=== PATIENT | female | born 1935 | race Two or more races ===

== ENCOUNTER 2017-02-18 07:30 | Outpatient (CLI) | payer OTHER ==
[~2017-02-18 07:30] MED LIST: ANTIVERT25 M1 PO; ATENOLOL25 MG; LISINOPRIL-HCTZ1 T13; ORPH100T PO; SYNTHROID137 MCG; TRAMADOL HCL-AP1 TAB PO; ULTRACET PO; VASOTEC5 MG; ZETIA10 MG
== END 2017-02-18 08:30 | disposition home or self-care (01) ==
LOC: NUCLEAR 07:30
DX: C84.40 Peripheral T-cell lymphoma, not elsewhere classified, unspecified site (principal); C91.12 Chronic lymphocytic leukemia of B-cell type in relapse; D63.0 Anemia in neoplastic disease; D69.49 Other primary thrombocytopenia; D63.8 Anemia in other chronic diseases classified elsewhere; D51.3 Other dietary vitamin B12 deficiency anemia; E03.8 Other specified hypothyroidism; E03.9 Hypothyroidism, unspecified; E78.5 Hyperlipidemia, unspecified; I10 Essential (primary) hypertension; M81.0 Age-related osteoporosis without current pathological fracture; Z86.2 Personal history of diseases of the blood and blood-forming organs and certain disorders involving the immune mechanism; Z85.79 Personal history of other malignant neoplasms of lymphoid, hematopoietic and related tissues
CPT/HCPCS: 78816; A9552

== ENCOUNTER 2017-02-20 08:38 | Outpatient (CLI) | payer OTHER | END 2017-02-20 08:44 | disposition home or self-care (01) | LOC: LAB 08:38 | DX: C84.40 Peripheral T-cell lymphoma, not elsewhere classified, unspecified site (principal); C91.12 Chronic lymphocytic leukemia of B-cell type in relapse; D63.0 Anemia in neoplastic disease; D69.49 Other primary thrombocytopenia; D72.818 Other decreased white blood cell count; D63.8 Anemia in other chronic diseases classified elsewhere; D51.3 Other dietary vitamin B12 deficiency anemia; E03.8 Other specified hypothyroidism; E78.4 Other hyperlipidemia; I10 Essential (primary) hypertension; M81.0 Age-related osteoporosis without current pathological fracture; Z86.2 Personal history of diseases of the blood and blood-forming organs and certain disorders involving the immune mechanism; Z85.79 Personal history of other malignant neoplasms of lymphoid, hematopoietic and related tissues ==

== ENCOUNTER 2017-03-31 08:14 | Outpatient (CLI) | payer OTHER ==
[~2017-03-31] VITALS: Ht 152.4 cm; Wt 81.2 kg
== END 2017-03-31 08:35 | disposition home or self-care (01) ==
LOC: OFIC 805 08:14
DX: J39.2 Other diseases of pharynx (principal); C85.81 Other specified types of non-Hodgkin lymphoma, lymph nodes of head, face, and neck

== ENCOUNTER 2017-04-04 08:26 | Outpatient (CLI) | payer OTHER | END 2017-04-04 10:02 | disposition home or self-care (01) | LOC: SONOGRAMA 08:26 → MAMO-SONO 09:45 → SONOGRAMA 10:02 | DX: R22.1 Localized swelling, mass and lump, neck (principal) ==

== ENCOUNTER 2017-04-18 09:38 | Outpatient (CLI) | payer OTHER | END 2017-04-18 09:44 | disposition home or self-care (01) | LOC: RAD 09:38 | DX: Z01.818 Encounter for other preprocedural examination (principal) ==

== ENCOUNTER 2017-07-22 08:09 | Outpatient (CLI) | payer OTHER | END 2017-07-22 08:13 | disposition home or self-care (01) | LOC: MAMO-SONO 08:09 | DX: Z12.31 Encounter for screening mammogram for malignant neoplasm of breast (principal); Z87.898 Personal history of other specified conditions; N63.10 Unspecified lump in the right breast, unspecified quadrant; N63.11 Unspecified lump in the right breast, upper outer quadrant ==

== ENCOUNTER → 2017-08-08 | Outpatient (CLI) | payer OTHER | END | disposition home or self-care (01) | LOC: MAMO-SONO 08-07 08:45 → SONOGRAMA 08:02 → MAMO-SONO 08:45 | DX: C91.Z0 Other lymphoid leukemia not having achieved remission (principal); C91.50 Adult T-cell lymphoma/leukemia (HTLV-1-associated) not having achieved remission; C84.40 Peripheral T-cell lymphoma, not elsewhere classified, unspecified site; C91.12 Chronic lymphocytic leukemia of B-cell type in relapse; D63.0 Anemia in neoplastic disease; D69.49 Other primary thrombocytopenia; D72.818 Other decreased white blood cell count; D63.8 Anemia in other chronic diseases classified elsewhere; D51.3 Other dietary vitamin B12 deficiency anemia; E03.8 Other specified hypothyroidism; E78.4 Other hyperlipidemia; I10 Essential (primary) hypertension; M81.0 Age-related osteoporosis without current pathological fracture; Z86.2 Personal history of diseases of the blood and blood-forming organs and certain disorders involving the immune mechanism; Z85.79 Personal history of other malignant neoplasms of lymphoid, hematopoietic and related tissues ==

== ENCOUNTER 2017-08-22 07:56 | Outpatient (CLI) | payer OTHER | END 2017-08-22 08:00 | disposition home or self-care (01) | LOC: LAB 07:56 | DX: C91.Z0 Other lymphoid leukemia not having achieved remission (principal); C91.50 Adult T-cell lymphoma/leukemia (HTLV-1-associated) not having achieved remission; C91.12 Chronic lymphocytic leukemia of B-cell type in relapse; D63.0 Anemia in neoplastic disease; D69.49 Other primary thrombocytopenia; D63.8 Anemia in other chronic diseases classified elsewhere; D51.3 Other dietary vitamin B12 deficiency anemia; E03.8 Other specified hypothyroidism; E78.4 Other hyperlipidemia; I10 Essential (primary) hypertension; M81.0 Age-related osteoporosis without current pathological fracture; Z86.2 Personal history of diseases of the blood and blood-forming organs and certain disorders involving the immune mechanism; Z85.79 Personal history of other malignant neoplasms of lymphoid, hematopoietic and related tissues; D51.1 Vitamin B12 deficiency anemia due to selective vitamin B12 malabsorption with proteinuria; D51.0 Vitamin B12 deficiency anemia due to intrinsic factor deficiency; E06.3 Autoimmune thyroiditis; D68.8 Other specified coagulation defects ==

== ENCOUNTER 2017-10-26 16:11 | Inpatient (IN) | payer OTHER ==
[~2017-10-26] VITALS: Ht 160 cm; Wt 63.5 kg
[2017-10-28] MEDS ORDERED: PANTOPRAZOLE SO40 MG PO (16:07)
[2017-10-28] MEDS ORDERED: SYNTHROID125 MCG PO (16:07)
[2017-10-28] MEDS ORDERED: ZETIA10 MG PO (16:07)
[2017-10-28] MEDS ORDERED: PYRIDOXINE HCL100 M1 PO (16:07)
[2017-10-28] MEDS ORDERED: Neurin-Sl Tablet Sl SL (16:07)
[2017-10-28] MEDS ORDERED: LISINOPRIL20 MG PO (16:07)
== END 2017-10-28 17:20 | disposition home or self-care (01) | DRG 842 ==
LOC: ER 16:11 → SURH 17:17
PROC: 30233N1 Transfusion of Nonautologous Red Blood Cells into Peripheral Vein, Percutaneous Approach (ICD-10-PCS; principal; 2017-10-26)
PROC: 8E0ZXY6 Isolation (ICD-10-PCS; 2017-10-26)
DX: C91.50 Adult T-cell lymphoma/leukemia (HTLV-1-associated) not having achieved remission (principal); D63.8 Anemia in other chronic diseases classified elsewhere

== ENCOUNTER 2017-11-07 07:39 | Outpatient (CLI) | payer OTHER ==
[~2017-11-07 07:39] MED LIST changes: +LISINOPRIL20 MG PO; +Neurin-Sl Tablet Sl SL; +PANTOPRAZOLE SO40 MG PO; +PYRIDOXINE HCL100 M1 PO; +SYNTHROID125 MCG PO; +ZETIA10 MG PO
== END 2017-11-07 08:08 | disposition home or self-care (01) ==
LOC: LAB 07:39
DX: C91.Z0 Other lymphoid leukemia not having achieved remission (principal); C84.40 Peripheral T-cell lymphoma, not elsewhere classified, unspecified site; C91.12 Chronic lymphocytic leukemia of B-cell type in relapse; D63.0 Anemia in neoplastic disease; D69.49 Other primary thrombocytopenia; D72.818 Other decreased white blood cell count; D63.8 Anemia in other chronic diseases classified elsewhere; D51.3 Other dietary vitamin B12 deficiency anemia; E03.9 Hypothyroidism, unspecified; E78.4 Other hyperlipidemia; I10 Essential (primary) hypertension; M81.0 Age-related osteoporosis without current pathological fracture; Z86.2 Personal history of diseases of the blood and blood-forming organs and certain disorders involving the immune mechanism; Z85.79 Personal history of other malignant neoplasms of lymphoid, hematopoietic and related tissues; D50.8 Other iron deficiency anemias; D51.8 Other vitamin B12 deficiency anemias

== ENCOUNTER 2017-12-17 08:00 | Outpatient (CLI) | payer OTHER | END 2017-12-17 08:47 | disposition home or self-care (01) | LOC: LAB 08:00 | DX: D50.8 Other iron deficiency anemias (principal); I10 Essential (primary) hypertension ==

== ENCOUNTER 2017-12-17 13:50 | Inpatient (IN) | payer OTHER ==
[~2017-12-17] VITALS: Ht 157.5 cm; Wt 77.6 kg
== END 2017-12-20 16:24 | disposition home or self-care (01) | DRG 840 ==
LOC: ER 13:50 → MEDI 18:39 → MEDJ 18:39 → MEDI 21:15 → MEDJ 12-18 12:02
PROC: 30233N1 Transfusion of Nonautologous Red Blood Cells into Peripheral Vein, Percutaneous Approach (ICD-10-PCS; principal; 2017-12-17)
PROC: 8E0ZXY6 Isolation (ICD-10-PCS; 2017-12-18)
DX: C91.Z0 Other lymphoid leukemia not having achieved remission (principal); D61.1 Drug-induced aplastic anemia; E03.8 Other specified hypothyroidism; E78.49 Other hyperlipidemia; I10 Essential (primary) hypertension; D63.8 Anemia in other chronic diseases classified elsewhere

== ENCOUNTER 2018-02-02 08:06 | Outpatient (CLI) | payer OTHER | END 2018-02-02 08:18 | disposition home or self-care (01) | LOC: LAB 08:06 | DX: C91.Z0 Other lymphoid leukemia not having achieved remission (principal); C84.40 Peripheral T-cell lymphoma, not elsewhere classified, unspecified site; C91.12 Chronic lymphocytic leukemia of B-cell type in relapse; D69.49 Other primary thrombocytopenia; D72.818 Other decreased white blood cell count; D63.8 Anemia in other chronic diseases classified elsewhere; D51.3 Other dietary vitamin B12 deficiency anemia; E03.8 Other specified hypothyroidism; I10 Essential (primary) hypertension; M81.0 Age-related osteoporosis without current pathological fracture; Z86.2 Personal history of diseases of the blood and blood-forming organs and certain disorders involving the immune mechanism; Z85.79 Personal history of other malignant neoplasms of lymphoid, hematopoietic and related tissues; E78.49 Other hyperlipidemia ==

== ENCOUNTER 2018-02-04 17:11 | Outpatient (CLI) | payer OTHER | END 2018-02-04 17:28 | disposition home or self-care (01) | LOC: LAB 17:11 | DX: D50.0 Iron deficiency anemia secondary to blood loss (chronic) (principal); D50.8 Other iron deficiency anemias ==

== ENCOUNTER 2018-02-14 11:08 | Emergency (ER) | payer OTHER ==
[~2018-02-14] VITALS: Ht 157.5 cm; Wt 77.6 kg
[2018-02-14] MEDS ORDERED: [UNRECOGNIZED DRUG - OTHER] (11:46)
== END 2018-02-14 14:26 | disposition home or self-care (01) ==
LOC: ER 11:08
DX: L03.114 Cellulitis of left upper limb (principal)

== ENCOUNTER 2018-03-03 06:51 | Inpatient (IN) | payer OTHER ==
[~2018-03-03] VITALS: Ht 157.5 cm; Wt 171.0 kg
[~2018-03-03 06:51] MED LIST changes: +[UNRECOGNIZED DRUG - OTHER]
[2018-03-05] MEDS ORDERED: SYNTHROID125 MCG PO (14:43)
[2018-03-05] MEDS ORDERED: ZETIA10 MG PO (14:43)
[2018-03-05] MEDS ORDERED: PANTOPRAZOLE SO40 MG PO (14:43)
[2018-03-05] MEDS ORDERED: ATENOLOL25 MG PO (14:43)
[2018-03-05] MEDS ORDERED: PYRIDOXINE HCL100 M1 PO (14:43)
[2018-03-05] MEDS ORDERED: Neurin-Sl Tablet Sl SL (14:43)
[2018-03-05] MEDS ORDERED: LISINOPRIL20 MG PO (14:43)
== END 2018-03-05 17:10 | disposition home or self-care (01) | DRG 842 ==
LOC: ER 06:51 → SEC-K 11:05 → MEDJ 14:43 → SEC-K 16:57 → MEDI 18:49
PROVIDERS: ADMIT Internal Medicine Geriatric Medicine
PROC: 30233N1 Transfusion of Nonautologous Red Blood Cells into Peripheral Vein, Percutaneous Approach (ICD-10-PCS; principal; 2018-03-03)
PROC: 8E0ZXY6 Isolation (ICD-10-PCS; 2018-03-03)
DX: C91.50 Adult T-cell lymphoma/leukemia (HTLV-1-associated) not having achieved remission (principal); D63.0 Anemia in neoplastic disease; D64.81 Anemia due to antineoplastic chemotherapy; T45.1X5A Adverse effect of antineoplastic and immunosuppressive drugs, initial encounter; D69.49 Other primary thrombocytopenia; I10 Essential (primary) hypertension; F41.8 Other specified anxiety disorders; E11.9 Type 2 diabetes mellitus without complications; Z79.4 Long term (current) use of insulin; E78.2 Mixed hyperlipidemia

== ENCOUNTER 2018-03-10 10:45 | Outpatient (CLI) | payer OTHER ==
[~2018-03-10 10:45] MED LIST changes: +ATENOLOL25 MG PO
== END 2018-03-10 11:18 | disposition home or self-care (01) ==
LOC: LAB 10:45
DX: D50.8 Other iron deficiency anemias (principal)

== ENCOUNTER 2018-03-29 06:27 | Outpatient (CLI) | payer OTHER | END 2018-03-29 08:10 | disposition home or self-care (01) | LOC: LAB 06:27 | DX: C91.Z0 Other lymphoid leukemia not having achieved remission (principal); C84.40 Peripheral T-cell lymphoma, not elsewhere classified, unspecified site; C91.12 Chronic lymphocytic leukemia of B-cell type in relapse; D63.0 Anemia in neoplastic disease; D69.49 Other primary thrombocytopenia; D72.818 Other decreased white blood cell count; D63.8 Anemia in other chronic diseases classified elsewhere; D51.3 Other dietary vitamin B12 deficiency anemia; E03.8 Other specified hypothyroidism; I10 Essential (primary) hypertension; M81.0 Age-related osteoporosis without current pathological fracture; Z86.2 Personal history of diseases of the blood and blood-forming organs and certain disorders involving the immune mechanism; Z85.79 Personal history of other malignant neoplasms of lymphoid, hematopoietic and related tissues; E78.49 Other hyperlipidemia ==

== ENCOUNTER 2018-04-22 13:10 | Outpatient (CLI) | payer OTHER | END 2018-04-22 13:15 | disposition home or self-care (01) | LOC: LAB 13:10 | DX: D50.8 Other iron deficiency anemias (principal) ==

== ENCOUNTER 2018-05-05 09:18 | Emergency (ER) | payer OTHER ==
[~2018-05-05] VITALS: Ht 152.4 cm; Wt 59.0 kg
== END 2018-05-05 15:03 | disposition home or self-care (01) ==
LOC: ER 09:18
DX: R42 Dizziness and giddiness (principal); J11.1 Influenza due to unidentified influenza virus with other respiratory manifestations

== ENCOUNTER 2018-05-06 13:17 | Outpatient (CLI) | payer OTHER ==
[~2018-05-06] VITALS: Ht 152.4 cm; Wt 81.2 kg
== END 2018-05-06 13:40 | disposition home or self-care (01) ==
LOC: OFIC 805 13:17
DX: E03.8 Other specified hypothyroidism (principal); R42 Dizziness and giddiness; H81.49 Vertigo of central origin, unspecified ear; J35.1 Hypertrophy of tonsils

== ENCOUNTER 2018-05-17 09:51 | Outpatient (CLI) | payer OTHER | END 2018-05-17 16:13 | disposition home or self-care (01) | LOC: LAB 09:51 | DX: D63.0 Anemia in neoplastic disease (principal); D63.8 Anemia in other chronic diseases classified elsewhere ==

== ENCOUNTER 2018-06-16 09:36 | Outpatient (CLI) | payer OTHER | END 2018-06-16 09:43 | disposition home or self-care (01) | LOC: LAB 09:36 | DX: D63.0 Anemia in neoplastic disease (principal); D63.8 Anemia in other chronic diseases classified elsewhere ==

== ENCOUNTER 2018-07-05 09:29 | Emergency (ER) | payer OTHER ==
[~2018-07-05] VITALS: Ht 157.5 cm; Wt 684.9 kg
== END 2018-07-05 17:50 | disposition home or self-care (01) ==
LOC: ER 09:29
DX: K52.89 Other specified noninfective gastroenteritis and colitis (principal)

== ENCOUNTER 2018-07-29 09:54 | Outpatient (CLI) | payer OTHER | END 2018-07-29 13:23 | disposition home or self-care (01) | LOC: LAB 09:54 | DX: E03.8 Other specified hypothyroidism (principal); C91.Z0 Other lymphoid leukemia not having achieved remission; C91.12 Chronic lymphocytic leukemia of B-cell type in relapse; D63.0 Anemia in neoplastic disease; D69.49 Other primary thrombocytopenia; D63.8 Anemia in other chronic diseases classified elsewhere; D51.3 Other dietary vitamin B12 deficiency anemia; E78.49 Other hyperlipidemia; I10 Essential (primary) hypertension; M81.0 Age-related osteoporosis without current pathological fracture; Z86.2 Personal history of diseases of the blood and blood-forming organs and certain disorders involving the immune mechanism; Z85.79 Personal history of other malignant neoplasms of lymphoid, hematopoietic and related tissues ==

== ENCOUNTER 2018-08-06 06:58 | Emergency (ER) | payer OTHER ==
[~2018-08-06] VITALS: Ht 157.5 cm; Wt 68.5 kg
== END 2018-08-06 14:29 | disposition home or self-care (01) ==
LOC: ER 06:58
DX: B34.9 Viral infection, unspecified (principal)

== ENCOUNTER 2018-08-31 07:25 | Outpatient (CLI) | payer OTHER | END 2018-08-31 07:30 | disposition home or self-care (01) | LOC: LAB 07:25 | DX: D50.8 Other iron deficiency anemias (principal); I10 Essential (primary) hypertension; E03.8 Other specified hypothyroidism; D63.0 Anemia in neoplastic disease; C91.Z0 Other lymphoid leukemia not having achieved remission ==

== ENCOUNTER → 2018-10-04 08:26 | Outpatient (CLI) | payer OTHER | END | disposition home or self-care (01) | LOC: LAB 08:26 | DX: D63.8 Anemia in other chronic diseases classified elsewhere (principal); D63.0 Anemia in neoplastic disease ==

== ENCOUNTER → 2018-10-06 09:41 | Outpatient (CLI) | payer OTHER | END | disposition home or self-care (01) | LOC: LAB 09:41 | DX: C91.Z0 Other lymphoid leukemia not having achieved remission (principal); C84.40 Peripheral T-cell lymphoma, not elsewhere classified, unspecified site; C91.12 Chronic lymphocytic leukemia of B-cell type in relapse; D63.0 Anemia in neoplastic disease; D69.49 Other primary thrombocytopenia; D63.8 Anemia in other chronic diseases classified elsewhere; D51.3 Other dietary vitamin B12 deficiency anemia; E03.8 Other specified hypothyroidism; E78.49 Other hyperlipidemia; I10 Essential (primary) hypertension; M81.0 Age-related osteoporosis without current pathological fracture; Z86.2 Personal history of diseases of the blood and blood-forming organs and certain disorders involving the immune mechanism; Z85.79 Personal history of other malignant neoplasms of lymphoid, hematopoietic and related tissues ==

== ENCOUNTER 2018-11-08 10:15 | Outpatient (CLI) | payer OTHER | END 2018-11-08 15:00 | disposition home or self-care (01) | LOC: LAB 10:15 | DX: C91.Z0 Other lymphoid leukemia not having achieved remission (principal); C84.40 Peripheral T-cell lymphoma, not elsewhere classified, unspecified site; C91.12 Chronic lymphocytic leukemia of B-cell type in relapse; D63.0 Anemia in neoplastic disease; D69.49 Other primary thrombocytopenia; D63.8 Anemia in other chronic diseases classified elsewhere; D51.3 Other dietary vitamin B12 deficiency anemia; E03.8 Other specified hypothyroidism; E78.4 Other hyperlipidemia; I10 Essential (primary) hypertension; Z86.2 Personal history of diseases of the blood and blood-forming organs and certain disorders involving the immune mechanism; Z85.79 Personal history of other malignant neoplasms of lymphoid, hematopoietic and related tissues; Z08 Encounter for follow-up examination after completed treatment for malignant neoplasm ==

== ENCOUNTER 2019-02-12 18:09 | Emergency (ER) | payer OTHER ==
[~2019-02-12] VITALS: Ht 160 cm; Wt 59.0 kg
== END 2019-02-14 06:43 | disposition home or self-care (01) ==
LOC: ER 18:09
DX: C91.50 Adult T-cell lymphoma/leukemia (HTLV-1-associated) not having achieved remission (principal); D63.0 Anemia in neoplastic disease; D50.8 Other iron deficiency anemias; R51 Headache

== ENCOUNTER 2019-03-22 13:21 | Inpatient (IN) | payer OTHER ==
[~2019-03-22] VITALS: Ht 61 cm; Wt 69.9 kg
--- NOTE | 2019-03-22 13:45 | NUR ---
SE RECIBE PTE ALERTA Y ORIENTADA X3,ES REFERIDA POR LA VERO.MNI LUJAN ,PTE REFIERE ESTAR MAREADA LA PTE REFIERE QUE LOS MAREOS LE DESTIN CUANDO LE BAJA LA HEMOGLOBINA.
--- NOTE | 2019-03-22 14:56 | NUR ---
EVALUADA [OR EL SE ORIENTA SOBRE TRATAMIENTO MEDICO SE LE EXTRAEN MUESTRAS DE BERTIN Y SE ENVIAN AL LABORATORIO. SE MANTIENE EN OBSERVACIO.
[2019-03-25] MEDS ORDERED: Neurin-Sl Tablet Sl SL (14:35)
[2019-03-25] MEDS ORDERED: LEVOTHYROXINE150 MCG PO (14:35)
[2019-03-25] MEDS ORDERED: LISINOPRIL20 MG PO (14:35)
[2019-03-25] MEDS ORDERED: Vitamin B-6 PO (14:35)
[2019-03-25] MEDS ORDERED: FOLIC ACID1 MG PO (14:35)
== END 2019-03-25 16:02 | disposition home or self-care (01) | DRG 842 ==
LOC: ER 13:21 → SEC-K 18:20 → MEDJ 03-23 11:55 → SEC-K 03-23 13:42 → MEDJ 03-23 18:12
PROVIDERS: ADMIT Internal Medicine Geriatric Medicine
PROC: 30233N1 Transfusion of Nonautologous Red Blood Cells into Peripheral Vein, Percutaneous Approach (ICD-10-PCS; 2019-03-22)
PROC: 8E0ZXY6 Isolation (ICD-10-PCS; 2019-03-22)
PROC: BW20ZZZ Computerized Tomography (CT Scan) of Abdomen (ICD-10-PCS; principal; 2019-03-24)
PROC: BW21ZZZ Computerized Tomography (CT Scan) of Abdomen and Pelvis (ICD-10-PCS; 2019-03-24)
DX: C91.50 Adult T-cell lymphoma/leukemia (HTLV-1-associated) not having achieved remission (principal); D63.0 Anemia in neoplastic disease; D69.59 Other secondary thrombocytopenia; E03.9 Hypothyroidism, unspecified; I11.9 Hypertensive heart disease without heart failure; E78.5 Hyperlipidemia, unspecified

== ENCOUNTER 2019-04-26 08:20 | Outpatient (CLI) | payer OTHER ==
[~2019-04-26 08:20] MED LIST changes: +FOLIC ACID1 MG PO; +LEVOTHYROXINE150 MCG PO; +Vitamin B-6 PO
== END 2019-04-26 15:02 | disposition home or self-care (01) ==
LOC: LAB 08:20
DX: D50.8 Other iron deficiency anemias (principal); D51.8 Other vitamin B12 deficiency anemias; I10 Essential (primary) hypertension

== ENCOUNTER 2019-04-26 09:50 | Inpatient (IN) | payer OTHER ==
[~2019-04-26] VITALS: Ht 152.4 cm; Wt 68.9 kg
--- NOTE | 2019-04-26 10:26 | NUR ---
PACIENTE ALERTA Y ORIENTADA X3 ES REFERIDA POR EL DR. ROMAN POR [facility] EN 6.5 EN CBC DE HOY,SE UBICA EN AREA DE OBSERVACION PARA EVALUACION MEDICA.
--- NOTE | 2019-04-26 12:05 | NUR ---
PACIENTE ALERTA Y ORIENTADA POR SHILOH ESFERAS. SE ORIENTA A PACIENTE SOBRE PROCEDIMIENTO, REFIERE ENTENDER. EXTRAE MUESTRAS DE LABORATORIO PARA REQUISAR 3 UNIDAD DE PRBC'S FRACCIONADA EN HOLD. SE LLEVAN TUBOS A BANCO DE BERTIN. PACIENTE FIRMA HOJA DE CONSENTIMIENTO DE TRANSFUSION.
[2019-04-28] MEDS ORDERED: Vitamin B-6 PO (13:41)
[2019-04-28] MEDS ORDERED: LISINOPRIL20 MG PO (13:41)
[2019-04-28] MEDS ORDERED: SYNTHROID175 MCG PO (13:41)
[2019-04-28] MEDS ORDERED: MECLIZINE HCL25 MG PO (13:41)
[2019-04-28] MEDS ORDERED: FOLIC ACID1 MG PO (13:41)
[2019-04-28] MEDS ORDERED: PANTOPRAZOLE SO40 MG PO (13:41)
[2019-04-28] MEDS ORDERED: Neurin-Sl Tablet Sl SL (13:41)
[2019-04-28] MEDS ORDERED: PYRIDOXINE HCL50 MG PO (13:41)
== END 2019-04-28 17:44 | disposition home or self-care (01) | DRG 842 ==
LOC: ER 09:50 → MEDJ 16:01
PROVIDERS: ADMIT Internal Medicine Geriatric Medicine
PROC: 30233N1 Transfusion of Nonautologous Red Blood Cells into Peripheral Vein, Percutaneous Approach (ICD-10-PCS; principal; 2019-04-27)
PROC: 8E0ZXY6 Isolation (ICD-10-PCS; 2019-04-27)
DX: C91.50 Adult T-cell lymphoma/leukemia (HTLV-1-associated) not having achieved remission (principal); D64.9 Anemia, unspecified; I10 Essential (primary) hypertension; E03.9 Hypothyroidism, unspecified; D69.6 Thrombocytopenia, unspecified; D63.0 Anemia in neoplastic disease

== ENCOUNTER 2019-05-02 12:13 | Inpatient (IN) | payer OTHER ==
[~2019-05-02] VITALS: Ht 160 cm; Wt 52.0 kg
[~2019-05-02 12:13] MED LIST changes: +MECLIZINE HCL25 MG PO; +PYRIDOXINE HCL50 MG PO; +SYNTHROID175 MCG PO
== END 2019-05-08 15:43 | disposition expired | DRG 870 ==
LOC: ER 12:13 → MEDJ 13:55 → ICU 13:55 → MEDJ 19:08 → ICU 05-03 02:03
PROVIDERS: ADMIT Internal Medicine Geriatric Medicine
PROC: 5A1955Z Respiratory Ventilation, Greater than 96 Consecutive Hours (ICD-10-PCS; principal; 2019-05-02)
PROC: 0BH17EZ Insertion of Endotracheal Airway into Trachea, Via Natural or Artificial Opening (ICD-10-PCS; 2019-05-02)
PROC: 8E0ZXY6 Isolation (ICD-10-PCS; 2019-05-02)
PROC: 4A12X4Z Monitoring of Cardiac Electrical Activity, External Approach (ICD-10-PCS; 2019-05-02)
PROC: 4A033R1 Measurement of Arterial Saturation, Peripheral, Percutaneous Approach (ICD-10-PCS; 2019-05-02)
PROC: 3E0F7GC Introduction of Other Therapeutic Substance into Respiratory Tract, Via Natural or Artificial Opening (ICD-10-PCS; 2019-05-02)
PROC: CB2YYZZ Tomographic (Tomo) Nuclear Medicine Imaging of Respiratory System using Other Radionuclide (ICD-10-PCS; 2019-05-02)
PROC: 30233N1 Transfusion of Nonautologous Red Blood Cells into Peripheral Vein, Percutaneous Approach (ICD-10-PCS; 2019-05-03)
PROC: 30233R1 Transfusion of Nonautologous Platelets into Peripheral Vein, Percutaneous Approach (ICD-10-PCS; 2019-05-03)
PROC: B245ZZZ Ultrasonography of Left Heart (ICD-10-PCS; 2019-05-03)
DX: A41.52 Sepsis due to Pseudomonas (principal); J96.01 Acute respiratory failure with hypoxia; J15.1 Pneumonia due to Pseudomonas; R65.21 Severe sepsis with septic shock; N17.0 Acute kidney failure with tubular necrosis; I21.A1 Myocardial infarction type 2; C91.60 Prolymphocytic leukemia of T-cell type not having achieved remission; E87.2 Acidosis; I10 Essential (primary) hypertension; E03.9 Hypothyroidism, unspecified; Z20.828 Contact with and (suspected) exposure to other viral communicable diseases; R16.2 Hepatomegaly with splenomegaly, not elsewhere classified; B96.0 Mycoplasma pneumoniae [M. pneumoniae] as the cause of diseases classified elsewhere; D69.6 Thrombocytopenia, unspecified